=== PATIENT | female | born 2005 | race Caucasian/White ===

== ENCOUNTER 2024-09-21 20:20 | Emergency (ER) | payer OTHER, SELFPAY ==
--- NOTE | ~2024-09-21 | CT_ITS ---
EXAMINATION: CT abdomen pelvis wo con DATE: 09/22/2024 01:27 INDICATION: Right lower quadrant abdominal pain. Right flank pain. TECHNIQUE: Computed tomography (CT) of the abdomen and pelvis was performed without intravenous contr ast. Automated exposure control and iterative reconstruction technique were employed. The dose-length product was 315.78 mGy-cm. COMPARISON: None. FINDINGS: The visualized portions of the lung bases are clear without pneumonia or pleural effusion. The heart size is normal. No pericardial effusion. The liver, gallbladder, spleen, pancreas, adrenal glands, and kidneys are normal. There is no urolithiasis. There is an intrauterine device in expected position. There are no dilated loops of bowel. The appendix is normal. There are no pathologically e nlarged lymph nodes. There is no free intraperitoneal fluid. There are chronic bilateral L5 pars defe cts. There is mild lumbar spondylosis. IMPRESSION: 1. No etiology for the patient's symptoms. Reviewed, dictated and finalized at location A. [facility] TECHNICIAN REGISTERED
[2024-09-21 20:23] VITALS: BP 126/78; PULSE 86; RESP 14; TEMP 36.8; O2SAT 100
--- NOTE | 2024-09-21 23:31 | ED.FEMALEGU ---
HPI - Female Genitourinary General Chief complaint: Urogenital-Female <Louise Mcgee PA-C - Last Filed: 09/22/24 02:47> Stated complaint: kidney infection, abdominal/back pain <Louise Mcgee PA-C - Last Filed: 09/22/24 02:47> Time Seen by Provider: 09/21/24 23:21 <Louise Mcgee PA-C - Last Filed: 09/22/24 02:47> History of Present Illness HPI Narrative: 19-year-old female with no past medical history presents to the emergency department with right flank pain, right lower quadrant abdominal pain and UTI symptoms. Patient states about 5 days ago she began having dysuria, urinary frequency urgency. She began taking azo [id number] with improvement. Today she woke up with pain to the right flank and right lower abdomen which was new and prompted her to come to the ED. she denies vaginal discharge or concern for STDs. Denies nausea vomiting, diarrhea, fever. No history of kidney stones. She believes she saw some blood in her urine a couple days ago. Last menstrual period was approximately 4 weeks ago. <Louise Mcgee PA-C - Last Filed: 09/22/24 02:47> Related Data Allergies/Adverse reactions: Allergies Allergy/AdvReac Type Severity Reaction Status Date / Time No Known Allergies Allergy Verified 09/22/24 03:34 <Louise Mcgee PA-C - Last Filed: 09/22/24 02:47> Review of Systems Review of Systems: All systems reviewed & are unremarkable except as noted in HPI and below <PRISCILA Bender Last Filed: 09/22/24 02:47> Exam Narrative: GENERAL: Well-appearing, well-nourished, and in no acute distress. HEAD: Normocephalic, atraumatic. EYES: EOMI. ENT: Nares clear, no rhinorrhea or epistaxis. Mucous membranes moist. NECK: Supple. CHEST: Clear to auscultation. No respiratory distress. HEART: Regular rate and rhythm. No murmur heard. Normal peripheral pulses. ABDOMEN: Normoactive bowel sounds. Abdomen soft with tenderness in the suprapubic region and right lower quadrant. No rebound or rigidity. Right-sided CVA tenderness EXTREMITIES: Normal range of motion. No edema. SKIN: Warm, dry, no rash. NEURO: No focal deficits. Alert and oriented x3 <Louise Mcgee PA-C - Last Filed: 09/22/24 02:47> Course Vital Signs Vital signs: Vital Signs Temperature 98.2 F 09/21/24 20:23 Pulse Rate 86 09/21/24 20:23 Respiratory Rate 14 09/21/24 20:23 Blood Pressure 126/78 09/21/24 20:23 Pulse Oximetry 100 09/21/24 20:23 Oxygen Delivery Room Air 09/21/24 20:23 Temperature 98.2 F 09/21/24 20:23 Pulse Rate 86 09/22/24 03:33 Respiratory Rate 16 09/22/24 03:33 Blood Pressure 128/79 09/22/24 03:33 Pulse Oximetry 98 09/22/24 03:33 Oxygen Delivery Room Air 09/21/24 20:23 <Louise Mcgee PA-C - Last Filed: 09/22/24 02:47> Vital Signs Temperature 98.2 F 09/21/24 20:23 Pulse Rate 86 09/21/24 20:23 Respiratory Rate 14 09/21/24 20:23 Blood Pressure 126/78 09/21/24 20:23 Pulse Oximetry 100 09/21/24 20:23 Oxygen Delivery Room Air 09/21/24 20:23 Temperature 98.2 F 09/21/24 20:23 Pulse Rate 86 09/22/24 03:33 Respiratory Rate 16 09/22/24 03:33 Blood Pressure 128/79 09/22/24 03:33 Pulse Oximetry 98 09/22/24 03:33 Oxygen Delivery Room Air 09/21/24 20:23 <Moo Rosales MD - Last Filed: 09/22/24 05:53> MDM - Female Genitourinary MDM Narrative Medical decision making narrative: 19-year-old female presents emergency department for dysuria, urinary frequency and urgency for 5 days and 1 day of right-sided abdominal pain and flank pain. Triage vitals are stable. Exam is significant for the above. CBC shows mild leukocytosis of 10.3. Chemistries are largely unremarkable. Urinalysis consistent with UTI with positive nitrates, 3+ leuk esterase, greater than 100 wbc's and white blood cell clumps. Urine culture pending. She does have 6-10 rbc's. Given flank pain will obtain CT abdomen pelvis without contrast to evaluate for ureteral lithiasis. is negative. Pending CT abdomen pelvis results at time of sign-out to Dr. Rosales. Patient has politely declined pain medications. She was given a dose of Rocephin in the ED. vitals remained stable. <Louise Mcgee PA-C - Last Filed: 09/22/24 02:47> 19-year-old female presents emergency department for dysuria, urinary frequency and urgency for 5 days and 1 day of right-sided abdominal pain and flank pain. Triage vitals are stable. Exam is significant for the above. CBC shows mild leukocytosis of 10.3. Chemistries are largely unremarkable. Urinalysis consistent with UTI with positive nitrates, 3+ leuk esterase, greater than 100 wbc's and white blood cell clumps. Urine culture pending. She does have 6-10 rbc's. Given flank pain will obtain CT abdomen pelvis without contrast to evaluate for ureteral lithiasis. is negative. Pending CT abdomen pelvis results at time of sign-out to Dr. Rosales. Patient has politely declined pain medications. She was given a dose of Rocephin in the ED. vitals remained stable. Michelebashir: Patient was signed out to me pending CT abdomen pelvis. CT was obtained and independently interpreted by me revealing no hydronephrosis, no evidence of kidney stones, no acute process. Patient was informed of these findings at bedside and that her symptoms are likely secondary to her urinary tract infection. She was informed that she will be placed on an oral antibiotic, cephalexin to take as prescribed for the next week. She was also instructed to follow-up with her primary care physician within the next 3-5 days and return to the emergency department if any new or worsening symptoms develop. She was discharged in stable condition. <Moo Rosales MD - Last Filed: 09/22/24 05:53> Differential Diagnosis Differential diagnosis: Likely urinary tract infection and other (Kidney stones, hydronephrosis, pyelonephritis) <Moo Rosales MD - Last Filed: 09/22/24 05:53> Lab Data Result diagrams: 09/22/24 00:23 09/22/24 00:23 <Louise Mcgee PA-C - Last Filed: 09/22/24 02:47> Labs: Lab Results 09/22/24 09/22/24 Range/Units 00:23 03:33 WBC 10.3 H (4.5-10.0) K/mm3 RBC 3.96 L (4.2-5.4) M/mm3 Hgb 12.6 (12.0-15.0) g/dL Hct 36.6 L (37.0-47.0) % MCV 92.4 (80-100) fl MCH 31.8 (26-34) pg MCHC 34.4 (32-36) g/dl RDW 12.3 (11.5-14.5) % Plt Count 252 (150-375) k/mm3 MPV 10.5 H (7.4-10.4) fl Immature Gran % (Auto) 0.4 (0-0.5) % Neut % (Auto) 64.0 (45.5-73.1) % Lymph % (Auto) 26.3 (18.3-44.2) % Patrick % (Auto) 6.8 (2.6-8.5) % Eos % (Auto) 2.0 (0-4.4) % Baso % (Auto) 0.5 (0.2-1.2) % Lymph # (Auto) 2.71 (0.9-3.2) K/mm3 Patrick # (Auto) 0.7 H (0.1-0.6) K/mm3 Eos # (Auto) 0.2 (0-0.3) K/mm3 Baso # (Auto) 0.1 (0.0-0.1) K/mm3 Abs Immat Gran (auto) 0.04 H (0.00-0.031) K/mm3 Absolute Neuts (auto) 6.6 (1.3-6.7) K/mm3 Absolute Nucleated RBC 0.000 (0.0-0.012) K/mm3 Nucleated RBC % 0.0 (0.0-0.2) % Sodium 138 (137-145) mmol/L Potassium 3.9 (3.4-5.0) mmol/L Chloride 109 H (98-107) mmol/L Carbon Dioxide 27 (22-30) mmol/L Anion Gap 2 L (4-12) mmol/L BUN 16 (7-17) mg/dL Creatinine 0.80 (0.7-1.0) mg/dL Estim Creat Clear Calc Not Reportable Estimated GFR > 60 (59 - ) Glucose 98 (65-110) mg/dL Calcium 9.1 (8.4-10.2) mg/dL Total Bilirubin 1.1 (0.2-1.3) mg/dL AST 27 (14-36) U/L ALT 23 (6-35) U/L Alkaline Phosphatase 67 (38-126) U/L Total Protein 6.0 L (6.3-8.2) g/dL Albumin 4.0 (3.5-5.1) g/dL Lipase 31 (23-300) U/L Urine Color Yellow (Yellow) Urine Appearance Turbid H (Clear) Urine pH 5.5 (5.0-9.0) Ur Specific [place] 1.015 (1.001-1.035) Urine Protein 1+ H (Negative) mg/dL Urine Glucose (UA) Negative (Negative) mg/dL Urine Ketones Negative (Negative) mg/dL Ur Blood (Man) 2+ H (Negative) Urine Nitrate Positive H (Negative) Urine Bilirubin Negative (Negative) Urine Urobilinogen 0.2 (<2.0) mg/dL Add Ur Microanalysis Reviewed Leukocyte Esterase Rfl 3+ H (Negative) ANGELES/UL Urine RBC 6-10 H (0-2) /hpf Urine WBC >100 H (0-3) /hpf Urine WBC Clumps Present H (None) /HPF Ur Squamous Epith Cells Few (Few) /hpf Urine Bacteria 4+ H /hpf Urine Casts 3-5 POC Urine HCG, Qual Negative (Negative) Urine Test Negative <Louise Mcgee PA-C - Last Filed: 09/22/24 02:47> Lab Results 09/22/24 09/22/24 Range/Units 00:23 03:33 WBC 10.3 H (4.5-10.0) K/mm3 RBC 3.96 L (4.2-5.4) M/mm3 Hgb 12.6 (12.0-15.0) g/dL Hct 36.6 L (37.0-47.0) % MCV 92.4 (80-100) fl MCH 31.8 (26-34) pg MCHC 34.4 (32-36) g/dl RDW 12.3 (11.5-14.5) % Plt Count 252 (150-375) k/mm3 MPV 10.5 H (7.4-10.4) fl Immature Gran % (Auto) 0.4 (0-0.5) % Neut % (Auto) 64.0 (45.5-73.1) % Lymph % (Auto) 26.3 (18.3-44.2) % Patrick % (Auto) 6.8 (2.6-8.5) % Eos % (Auto) 2.0 (0-4.4) % Baso % (Auto) 0.5 (0.2-1.2) % Lymph # (Auto) 2.71 (0.9-3.2) K/mm3 Patrick # (Auto) 0.7 H (0.1-0.6) K/mm3 Eos # (Auto) 0.2 (0-0.3) K/mm3 Baso # (Auto) 0.1 (0.0-0.1) K/mm3 Abs Immat Gran (auto) 0.04 H (0.00-0.031) K/mm3 Absolute Neuts (auto) 6.6 (1.3-6.7) K/mm3 Absolute Nucleated RBC 0.000 (0.0-0.012) K/mm3 Nucleated RBC % 0.0 (0.0-0.2) % Sodium 138 (137-145) mmol/L Potassium 3.9 (3.4-5.0) mmol/L Chloride 109 H (98-107) mmol/L Carbon Dioxide 27 (22-30) mmol/L Anion Gap 2 L (4-12) mmol/L BUN 16 (7-17) mg/dL Creatinine 0.80 (0.7-1.0) mg/dL Estim Creat Clear Calc Not Reportable Estimated GFR > 60 (59 - ) Glucose 98 (65-110) mg/dL Calcium 9.1 (8.4-10.2) mg/dL Total Bilirubin 1.1 (0.2-1.3) mg/dL AST 27 (14-36) U/L ALT 23 (6-35) U/L Alkaline Phosphatase 67 (38-126) U/L Total Protein 6.0 L (6.3-8.2) g/dL Albumin 4.0 (3.5-5.1) g/dL Lipase 31 (23-300) U/L Urine Color Yellow (Yellow) Urine Appearance Turbid H (Clear) Urine pH 5.5 (5.0-9.0) Ur Specific [place] 1.015 (1.001-1.035) Urine Protein 1+ H (Negative) mg/dL Urine Glucose (UA) Negative (Negative) mg/dL Urine Ketones Negative (Negative) mg/dL Ur Blood (Man) 2+ H (Negative) Urine Nitrate Positive H (Negative) Urine Bilirubin Negative (Negative) Urine Urobilinogen 0.2 (<2.0) mg/dL Add Ur Microanalysis Reviewed Leukocyte Esterase Rfl 3+ H (Negative) ANGELES/UL Urine RBC 6-10 H (0-2) /hpf Urine WBC >100 H (0-3) /hpf Urine WBC Clumps Present H (None) /HPF Ur Squamous Epith Cells Few (Few) /hpf Urine Bacteria 4+ H /hpf Urine Casts 3-5 POC Urine HCG, Qual Negative (Negative) Urine Test Negative <Moo Rosales MD - Last Filed: 09/22/24 05:53> Discharge Plan Discharge Clinical Impression: Urinary tract infection <Louise Mcgee PA-C - Last Filed: 09/22/24 02:47> Patient Disposition: Home, Self-Care <Louise Mcgee PA-C - Last Filed: 09/22/24 02:47> Condition: Improved <Louise Mcgee PA-C - Last Filed: 09/22/24 02:47> Instructions: Antibiotic Form, Acute Urinary Retention in Women (ED) <Louise Mcgee PA-C - Last Filed: 09/22/24 02:47> Additional Instructions: Please follow-up with your family doctor within the next 3-5 days. Return to emergency department if any new or worsening symptoms develop. Take the prescribed antibiotic as instructed for UTI. <Louise Mcgee PA-C - Last Filed: 09/22/24 02:47> Patient Language: Kazakh <Luoise Mcgee PA-C - Last Filed: 09/22/24 02:47> Prescriptions: New cephalexin 500 mg capsule 500 mg PO Q12H 7 Days Qty: 14 0RF <Louise Mcgee PA-C - Last Filed: 09/22/24 02:47> Follow-up/Referrals: Aimee Billingsley DO [Physician] - 3 Days PHYSICIAN,CUSTOMER OPERATIONS REPRESENTATIVE [Primary Care Provider] - <PRISCILA Bender Last Filed: 09/22/24 02:47>
[2024-09-22 00:35] LABS: Basophils Absolute Auto 0.1 K/mm3 (0.0-0.1); Basophils Percent Auto 0.5 % (0.2-1.2); Eosinophils Absolute Auto 0.2 K/mm3 (0-0.3); Hematocrit 36.6 % (37.0-47.0); Hemoglobin 12.6 g/dL (12.0-15.0); Immature Granulocyte Absolute 0.04 K/mm3 (0.00-0.031); Immature Granulocyte Percent A 0.4 % (0-0.5); Lymphocytes Absolute Auto 2.71 K/mm3 (0.9-3.2); Lymphocytes Percent Auto 26.3 % (18.3-44.2); Mean Corpuscular HGB Conc 34.4 g/dl (32-36); Mean Corpuscular Hemoglobin 31.8 pg (26-34); Mean Corpuscular Volume 92.4 fl (80-100); Mean Platelet Volume 10.5 fl (7.4-10.4); Monocytes Absolute Auto 0.7 K/mm3 (0.1-0.6); Monocytes Percent Auto 6.8 % (2.6-8.5); Neutrophils Absolute Auto 6.6 K/mm3 (1.3-6.7); Platelet Count Result 252 k/mm3 (150-375); Red Blood Count 3.96 M/mm3 (4.2-5.4); Red Cell Distribution Width 12.3 % (11.5-14.5); White Blood Count 10.3 K/mm3 (4.5-10.0)
[2024-09-22 00:40] LABS: Alanine Aminotransferase 23 U/L (6-35); Alkaline Phosphatase 67 U/L (38-126); Anion Gap 2 mmol/L (4-12); Aspartate Amino Transferase 27 U/L (14-36); Bilirubin,Total 1.1 mg/dL (0.2-1.3); Blood Urea Nitrogen 16 mg/dL (7-17); Calcium 9.1 mg/dL (8.4-10.2); Carbon Dioxide 27 mmol/L (22-30); Chloride 109 mmol/L (98-107); Estimated Glomerular Filt Rate > 60; Glucose 98 mg/dL (65-110); Lipase 31 U/L (23-300); Potassium 3.9 mmol/L (3.4-5.0); Sodium 138 mmol/L (137-145)
[2024-09-22 00:50] LABS: Add Urine Microscopic? YES; Appearance Urine Turbid (Clear); Bacteria Urine 4+ /hpf; Bilirubin Urine Negative (Negative); Blood Urine 2+ (Negative); Color Urine Yellow (Yellow); Glucose Urine UA Negative (Negative); Ketones Urine Negative (Negative); Leukocyte Esterase Ur 3+ LEU/UL (Negative); Need Manual Microscopic Reviewed; Nitrate Urine Positive (Negative); Protein Urine 1+ mg/dL (Negative); Specific Grav Ur 1.015 (1.001-1.035); Squamous Epithelial Cell Urine Few /hpf (Few); Urobilinogen Urine 0.2 mg/dL (<2.0); WBC Urine >100 /hpf (0-3); pH Urine 5.5 (5.0-9.0)
[2024-09-22 00:52] LABS: WBC Clumps Urine Present /HPF
[2024-09-22 01:08] LABS: Pregnancy On Board Control Positive; Urine Pregnancy Test Negative
[2024-09-22 03:33] VITALS: BP 128/79; PULSE 86; RESP 16; O2SAT 98
[2024-09-22 03:35] LABS: BEDSIDEPREGUCG Negative (Negative)
== END 2024-09-22 06:04 | disposition home or self-care (01) ==
PROVIDERS: Physician Assistant; Emergency Provider Emergency Medicine
DX: N39.0 Urinary tract infection, site not specified (principal)
CPT/HCPCS: 36415; 74176; 80053; 81001; 81025; 83690; 85025; 87077; 87086; 87147; 87186; 96365; 99284; J0696